=== PATIENT | female | born 1985 | race Caucasian/White ===

== ENCOUNTER 2016-02-28 21:45 | Emergency (ER) | payer OTHER ==
[2016-02-28] MEDS ORDERED: OPTIRAY 350 100 ML VIAL HMH IV ONE (21:46)
[2016-02-28] MEDS ORDERED: DIPHENHYDRAMINE 50 MG/ML VIAL ONE (22:42)
[2016-02-28] MEDS ORDERED: KETOROLAC 30 MG/ML VIAL ONE (22:42)
[2016-02-28] MEDS ORDERED: METOCLOPRAMIDE 10 MG/2 ML VIAL ONE (22:42)
[2016-02-28] MEDS ORDERED: SODIUM CHLORIDE 0.9% 1,000 ML ONE (22:42)
== END 2016-02-29 01:04 | disposition home or self-care (01) ==
LOC: ER 21:45
DX: R10.33 Periumbilical pain (principal); G43.019 Migraine without aura, intractable, without status migrainosus; S39.011A Strain of muscle, fascia and tendon of abdomen, initial encounter; F17.210 Nicotine dependence, cigarettes, uncomplicated
CPT/HCPCS: 36415; 74177; 80053; 81001; 83690; 84703; 85025; 96361; 96374; 96375